=== PATIENT | female | born 1985 | race Caucasian/White ===

== ENCOUNTER 2018-11-07 05:09 | Inpatient (IN) | payer OTHER | END 2018-11-08 13:15 | disposition home or self-care (01) | LOC: LDH 05:09 → WSH 11:45 | PROC: 10E0XZZ Delivery of Products of Conception, External Approach (ICD-10-PCS; principal; ~2018-11-07) | DX: O80 Encounter for full-term uncomplicated delivery (principal); Z37.0 Single live birth; Z3A.39 39 weeks gestation of pregnancy ==